=== PATIENT | male | born 1950 | race Caucasian/White ===

== ENCOUNTER 2017-03-18 22:13 | Emergency (ER) | payer BC, MEDICARE ==
[2017-03-18 22:56] LABS: Hematocrit 28.6 % (42.0-52.0); Hemoglobin 9.7 gm/dL (13.5-18.0); Mean Corpuscular Hemoglobin 31.2 pg (27-31); Mean Corpuscular Hgb Conc 33.9 g/dl (32-36); Mean Platelet Volume 9.2 fl (6.0-9.5); Neutrophil # 6.2 K/mm3 (1.3-6.0); Neutrophil % 68.1 % (42-75.0); Platelet Count 369 K/mm3 (150-450); Red Blood Count 3.11 M/mm3 (4.7-6.0); Red Cell Distribution Width 14.2 % (11.5-14.0)
[2017-03-18 23:08] LABS: Prothrombin Time (Patient) 10.4 Seconds (9.4-11.4)
[2017-03-18 23:09] LABS: Partial Thrombolplastin Time 30.6 Seconds (24-32)
[2017-03-18 23:14] LABS: ALT 14 U/L (19-67); AST 17 U/L (0-48); Albumin * 2.5 gm/dl (3.4-5.0); Alkaline Phosphatase * 79 U/L (50-170); Anion Gap 15.5 mmol/L (6.8-13.8); BUN/Creatinine Ratio 14.9 (9.0-21.6); Bilirubin, Total 0.2 mg/dL (0.0-1.1); Blood Urea Nitrogen 29 mg/dL (6-23); Ca. Corrected For Albumin 9.8 mg/dL (8.4-10.2); Calcium * 8.9 mg/dL (7.9-10.9); Carbon Dioxide 24.9 mmol/L (24-32.6); Chloride 101 mmol/L (97-106); Glucose * 167 mg/dL (70-110); Potassium 4.4 mmol/L (3.4-4.6); Sodium 137 mmol/L (132-142); Total Protein 8.4 gm/dL (6.2-8.2)
[2017-03-18 23:17] LABS: Troponin I Less than 0.017 ng/ml (0.00-0.10)
--- NOTE | 2017-03-19 00:36 | ERNOTE ---
Syncope ER HPI Stated Complaint: loc Time Seen by Provider: 03/19/17 00:20 Source: patient, family Exam Limitations: no limitations Immunizations: IMMUNIZATION HX Immunizations Up to Date Yes History of Influenza Vaccine No Allergies/Adverse Reactions: Allergies cephalexin [From Keflex] Allergy (Verified 03/18/17 22:24) Penicillins Allergy (Verified 03/18/17 22:24) Home Medications: HOME MEDICATIONS Allopurinol [Zyloprim] 300 mg PO DAILY 03/18/17 [Last Taken Unknown] Insulin Aspart Prot/Insuln Asp [Novolog Mix 70-30 Flexpen Syrn] 60 unit SQ BID 03/18/17 [Last Taken Unknown] Lisinopril [Prinivil] 20 mg PO BID 03/18/17 [Last Taken Unknown] Metoprolol Succinate [Toprol Xl] 100 mg PO BID 03/18/17 [Last Taken Unknown] metFORMIN HCL [Glucophage] 1,000 mg PO BID 03/18/17 [Last Taken Unknown] - History of Present Illness Narrative: pt states he has frequent syncopal episodes and has been seen in [place] for the same complaint and has had CT and other tests with nothing found. Prior Episodes: Present: recent history - 2-3 times this month Symptoms prior to episode: Present: light headedness, other - shortness of breath Activity at time of episode: Present: sitting Character of event: Present: prolonged (minutes), awake and alert after becoming supine Location of Injury: Present: head Current Symptoms: Present: back to normal Prior Treament: Reports: recently seen, similar symptoms before Review of Systems - Review of Systems Constitutional: Absent: recent illness, fever, chills EYE: Absent: double vision, vision changes ENT: Present: no symptoms reported Respiratory: Present: shortness of breath. Absent: wheezing Cardiology: Absent: chest pain, palpitations Gastrointestinal/Abdominal: Present: no symptoms reported Genitourinary: Present: no symptoms reported Musculoskeletal: Present: no symptoms reported Skin: Absent: rash, change in color Neurological: Absent: headache, numbness, tingling Endocrine: Present: no symptoms reported Hematologic/Lymphatic: Present: no symptoms reported Psych: Present: no symptoms reported - Patient's Past Medical History Patient History - Medical: Diabetes Type 1 Patient History - Cardiac/Respiratory: Hypertension, Hyperlipidemia Patient History - Cancer: No Hx of Cancer Patient History - Surgical Procedures: No surgical history Patient History - Other: None - Social History Living Situations: spouse Abuse History: No History of abuse Psych History: No pertinent hx Smoking Status: Never smoker Do you dip or chew tobacco: Yes Alcohol Use: none Drug Use: none - Immunizations Immunizations Up to Date: Yes History of Influenza Vaccine: No Physical Exam - Physical Exam General Appearance: Present: wd/wn, alert, no apparent distress Eye Exam: Normal inspection: bilateral, PERRL: bilateral Ears, Nose, Throat: Present: normal ENT inspection, normal pharynx Neck: Present: normal inspection, nontender, full range of motion Respiratory: Present: no respiratory distress, no accessory muscle use, lungs clear Cardiovascular/Chest: Present: regular rate, rhythm, no murmur, normal peripheral pulses Gastrointestinal/Abdominal: Present: normal bowel sounds, nontender, nondistended Male Genitals Exam: Present: urethral discharge Back Exam: Present: normal inspection, no vertebral tenderness Extremity Exam: Present: normal inspection, normal range of motion, no edema Neurological Exam: Present: alert, oriented, normal mood/affect Skin Exam: Present: normal color, warm/dry Lymphatic Exam: Present: no adenopathy ED Progress - Results and Orders Patient's Lab Results:: I have reviewed the patient's lab results. Results and Orders: Laboratory Tests 03/18/17 03/18/17 03/18/17 22:50 22:50 22:50 WBC 9.0 Hgb 9.7 L Hct 28.6 L Plt Count 369 PT 10.4 INR (Anticoag Therapy) 1.00 PTT (Will) 30.6 Sodium 137 Potassium 4.4 Chloride 101 Carbon Dioxide 24.9 Anion Gap 15.5 H BUN 29 H Creatinine 1.95 H Est GFR (Non-Af Amer) 37 L BUN/Creatinine Ratio 14.9 Random Glucose 167 H Calcium 8.9 Calcium Adj for Albumin 9.8 Total Bilirubin 0.2 AST 17 ALT 14 L Alkaline Phosphatase 79 Troponin I Less than 0.017 Total Protein 8.4 H Albumin 2.5 L - Vital Signs Patient's Vital Signs:: I have reviewed the patient's vital signs. Vital Signs: Vital Signs 03/18/17 03/18/17 03/18/17 22:17 23:01 23:19 Temperature 36.0 C L Pulse Rate 76 73 67 Respiratory 16 18 Rate Blood Pressure 179/84 177/79 O2 Sat by Pulse 98 98 Oximetry 03/18/17 23:40 Temperature Pulse Rate 66 Respiratory 18 Rate Blood Pressure 157/77 O2 Sat by Pulse 95 Oximetry - EKG EKG: NSR, RBBB - incompete, nonspecific ST T wave changes EKG read: Interp. by me - Progress/Reassessment Chief Complaint: Syncopal Episode Departure Clinical Impression: Syncopal episodes Qualifiers: Syncope type: unspecified Qualified Code(s): R55 - Syncope and collapse - Departure Disposition: Home Follow Up Needed Condition: Stable Instructions: Syncope, [id number] Additional Instructions: Keep the monitor on for 2 days. Return the monitor as directed. Follow up with your regular doctor for results of the monitor. Return to the ER if you have further episodes
[2017-03-19 01:22] VITALS: BP 156/78
== END 2017-03-19 01:21 | disposition home or self-care (01) ==
LOC: ER 22:13
DX: R55 Syncope and collapse (principal); E10.9 Type 1 diabetes mellitus without complications; Z79.4 Long term (current) use of insulin; I10 Essential (primary) hypertension